=== PATIENT | male | born 1985 | race African-American/Black ===

== ENCOUNTER 2020-01-14 23:23 | Emergency (ER) | payer MEDICAID, OTHER ==
[~2020-01-14] VITALS: Ht 172.7 cm; Wt 81.8 kg
[~2020-01-14 23:23] MED LIST: NO HOME MEDS
[2020-01-14 23:37] VITALS: BP 153/94
[2020-01-14] MEDS ORDERED: ALBU6.7H9 INH (23:46)
[2020-01-14] MEDS ORDERED: PRED20TA PO (23:46)
--- NOTE | 2020-01-14 23:58 | NUR ---
PT HAD COUGHING EPISODE AND THEN EPISODE OF EMESIS (SMALL AMT). PETROS ALVARADO UPDATED AND SAW PATIENT RIGHT AFTER EPISODE. PT HAS A FRIEND WITH HIM IN RAP TENT.
--- NOTE | 2020-01-15 00:02 | NUR ---
I ATTEMPTED TWICE TO SWAB PTS NOSE FOR COVID AND HE WAS UNABLE TO TOLERATE IT AND NOW REFUSES THE TEST. PETROS ALVARADO AWARE.
--- NOTE | 2020-01-15 00:09 | NUR ---
pt requests an inhaler before he leaves, updated that our hospital dose not dispense Rx and he will have to get them filled tomorrow. Pt states he's unable to breath d/t his cough. PETROS Cervantes updated and verbal received for order of earline quinonez.
[2020-01-15] MEDS ORDERED: benzonatate 100mg capsule PO ONE (00:15)
== END 2020-01-15 00:36 | disposition home or self-care (01) ==
LOC: ER 23:24
DX: R05 Cough (principal); R06.02 Shortness of breath; Z20.828 Contact with and (suspected) exposure to other viral communicable diseases; Z72.0 Tobacco use; Z98.890 Other specified postprocedural states; Z59.0 Homelessness; Z88.0 Allergy status to penicillin; Z79.899 Other long term (current) drug therapy
CPT/HCPCS: 99283

== ENCOUNTER 2021-10-16 07:15 | Inpatient (IN) | payer MEDICAID, OTHER ==
[~2021-10-16] VITALS: Ht 170.2 cm; Wt 70.0 kg
[~2021-10-16 07:15] MED LIST changes: +ALBU6.7H9 INH
[2021-10-16] MEDS ORDERED: ringers solution, lacted 1,000 ML IV ONE ×3 (09:00→12:10)
[2021-10-16] MEDS ORDERED: acetaminophen 325mg tablet PO ONE (09:05)
[2021-10-16] MEDS ORDERED: ondansetron/PF 4mg/2ml inj IV ONE (09:05)
[2021-10-16 10:29] LABS: BASOPHILS % (AUTO) 0.2 % (0-1); EOSINOPHILS # (AUTO) 0.1 X10'3 (0-0.9); EOSINOPHILS % (AUTO) 0.6 % (0-6); HEMATOCRIT 48.9 % (42.0-52.0); HEMOGLOBIN 16.3 g/dl (14.0-17.9); LYMPHOCYTES # (AUTO) 1.7 X10'3 (1.1-4.8); LYMPHOCYTES % (AUTO) 10.6 % (21-51); MEAN CORPUSCULAR HEMOGLOBIN 27.7 PG (27.0-31.0); MEAN CORPUSCULAR HGB CONC 33.4 g/dL (33.0-36.5); MEAN CORPUSCULAR VOLUME 82.7 FL (78-98); MEAN PLATELET VOLUME 8.9 FL (7.4-10.4); MONOCYTES # (AUTO) 1.6 X10'3 (0-0.9); MONOCYTES % (AUTO) 9.9 % (2-12); NEUTROPHILS # (AUTO) 12.5 X10'3 (1.8-7.7); NEUTROPHILS % (AUTO) 78.7 % (42-75); PLATELET COUNT 390 X10'3 (140-440); RED BLOOD COUNT 5.91 X10'6 (4.70-6.10); RED CELL DISTRIBUTION WIDTH 15.3 % (11.5-14.5); WHITE BLOOD COUNT 15.9 X10'3 (4.5-11.0)
[2021-10-16 10:45] LABS: ALANINE AMINOTRANSFERASE 26 U/L (12-78); ALKALINE PHOSPHATASE 81 IU/L (46-116); ANION GAP 15 (8-16); ASPARTATE AMINO TRANSFERASE 27 U/L (10-37); BILIRUBIN,TOTAL 0.8 MG/DL (0.1-1.0); BLOOD UREA NITROGEN 38 MG/DL (7-18); BUN/CREATININE RATIO 10.2 (5.4-32.0); CALCIUM 9.5 MG/DL (8.5-10.1); CHLORIDE 95 MMOL/L (99-107); CREATININE 3.74 MG/DL (0.60-1.10); GLUCOSE 83 MG/DL (70-104); MAGNESIUM 2.7 MG/DL (1.5-2.4); POTASSIUM 3.6 MMOL/L (3.5-5.1); SODIUM 136 MMOL/L (135-145); TOTAL CARBON DIOXIDE 26.4 MMOL/L (24-32); TOTAL PROTEIN 10.2 G/DL (6.4-8.2); eGFR 23 ML/MIN
[2021-10-16 11:18] LABS: CREATINE KINASE 929 U/L (39-308)
[2021-10-16 11:34] LABS: CLARITY,URINE CLOUDY (Clear); COLOR,URINE YELLOW (Yellow); GLUCOSE, URINE NEGATIVE (Neg); KETONES,URINE 15 mg/dl (Neg); LEUKOCYTE ESTERASE ,URINE NEGATIVE (Neg); NITRITES, URINE NEGATIVE (Neg); OCCULT BLOOD,URINE SMALL (Neg); PH,URINE 5.5 (4.8-8.0); PROTEIN,URINE 100 mg/dl (Neg); UROBILINOGEN,URINE 0.2 E.U/dL (0.2-1.0)
[2021-10-16 11:48] LABS: SODIUM,URINE RANDOM 41 MEQ/L; URINE AMPHETAMINE SCREEN POSITIVE (Neg); URINE BARBITUATE SCREEN NEGATIVE (Neg); URINE BENZODIAZEPINES SCREEN NEGATIVE (Neg); URINE CANNABINOID SCREEN POSITIVE (Neg); URINE COCAINE SCREEN NEGATIVE (Neg); URINE METHADONE SCREEN NEGATIVE (Neg); URINE PHENCYCLIDINE SCREEN NEGATIVE (Neg)
[2021-10-16 11:50] LABS: UA COLLECTION TYPE CLN CATCH MIDSTREAM
[2021-10-16 11:51] LABS: BACTERIA,URINE 1+ /HPF (Neg); HYALINE CASTS 0-3 /LPF (NEGATIVE); MUCUS STRANDS FEW /LPF (Neg); RBC,URINE 0-2 /HPF (0-2); SQUAMOUS EPITHELIAL CELL,UR FEW /LPF (FEW)
[2021-10-16 11:52] LABS: WBC CLUMPS,URINE FEW /HPF (NEGATIVE)
[2021-10-16] MEDS ORDERED: magnesium hydroxide 30ml (MOM) UD suspension PO PRN (14:40)
[2021-10-16] MEDS ORDERED: magnesium 4gm in 100ml NS 100 ML IV PRN (14:40)
[2021-10-16] MEDS ORDERED: ondansetron/PF 4mg/2ml inj IV PRN (14:40)
[2021-10-16] MEDS ORDERED: magnesium Cl slow-release 64mg tablet PO PRN (14:40)
[2021-10-16] MEDS ORDERED: mag hydrox/Alum hydrox/simeth 30ml oral suspension PO PRN (14:40)
[2021-10-16] MEDS ORDERED: potassium CL 10mEq/100ml bag 100 ML IV PRN (14:40)
[2021-10-16] MEDS ORDERED: POTASSIUM BICARB 20meq eff tab 20 MEQ TABLET.EFF PO PRN ×2 (14:40)
[2021-10-16] MEDS ORDERED: magnesium 2GM in 50ml NS 50 ML IV PRN (14:40)
[2021-10-16] MEDS ORDERED: acetaminophen 325mg tablet PO PRN ×2 (14:40)
[2021-10-16 15:08] LABS: HEMOGLOBIN A1C 5.4 % (4.5-6.2)
[2021-10-16] MEDS: normal saline 1000ml 1,000 ML IV SCH ×2 (15:12→17:28)
[2021-10-16] MEDS: CefTRIAXone/D5W-Rocephin 1gm 50 ML IV SCH (15:12)
--- NOTE | 2021-10-16 16:24 | NUR ---
Report given at this time for room 3012 c
[2021-10-16 16:52] VITALS: BP 117/76
[2021-10-16] MEDS ORDERED: pantoprazole 40MG/NS 100ML BAG 100 ML IV SCH (17:30)
[2021-10-16 18:00] VITALS: BP 117/76
[2021-10-16] MEDS: K and/or MAG REPLACEMENT MC SCH (18:15)
[2021-10-16] MEDS: docusate sod 100mg capsule PO SCH (20:46)
[2021-10-16] MEDS: pantoprazole 40MG/NS 100ML BAG 100 ML IV SCH (20:47)
[2021-10-16] MEDS: heparin, porcine 5000 units/ml vial SQ SCH (20:49)
[2021-10-16 22:00] VITALS: BP 111/60
[2021-10-17 02:52] VITALS: BP 93/59
[2021-10-17 06:00] VITALS: BP 107/49
[2021-10-17 06:30] LABS: BASOPHILS # (AUTO) 0.1 X10'3 (0-0.2); BASOPHILS % (AUTO) 0.8 % (0-1); EOSINOPHILS # (AUTO) 0.2 X10'3 (0-0.9); EOSINOPHILS % (AUTO) 1.9 % (0-6); HEMOGLOBIN 12.8 g/dl (14.0-17.9); LYMPHOCYTES # (AUTO) 1.7 X10'3 (1.1-4.8); LYMPHOCYTES % (AUTO) 18.7 % (21-51); MEAN CORPUSCULAR HEMOGLOBIN 27.9 PG (27.0-31.0); MEAN CORPUSCULAR HGB CONC 33.7 g/dL (33.0-36.5); MEAN CORPUSCULAR VOLUME 82.9 FL (78-98); MEAN PLATELET VOLUME 9.2 FL (7.4-10.4); MONOCYTES # (AUTO) 1.4 X10'3 (0-0.9); MONOCYTES % (AUTO) 15.3 % (2-12); NEUTROPHILS # (AUTO) 5.8 X10'3 (1.8-7.7); NEUTROPHILS % (AUTO) 63.3 % (42-75); PLATELET COUNT 317 X10'3 (140-440); RED BLOOD COUNT 4.58 X10'6 (4.70-6.10); RED CELL DISTRIBUTION WIDTH 14.8 % (11.5-14.5); WHITE BLOOD COUNT 9.2 X10'3 (4.5-11.0)
--- NOTE | 2021-10-17 06:45 | NUR ---
Patient in room PCU 3012C. I have received report from MERA LOZANO and had the opportunity to ask questions and assume patient care.
[2021-10-17 07:05] LABS: ALANINE AMINOTRANSFERASE 23 U/L (12-78); ALBUMIN 3.4 G/DL (3.4-5.0); ALKALINE PHOSPHATASE 65 IU/L (46-116); ANION GAP 11 (8-16); ASPARTATE AMINO TRANSFERASE 21 U/L (10-37); BILIRUBIN,TOTAL 0.6 MG/DL (0.1-1.0); BLOOD UREA NITROGEN 33 MG/DL (7-18); BUN/CREATININE RATIO 18.4 (5.4-32.0); CALCIUM 8.3 MG/DL (8.5-10.1); CHLORIDE 102 MMOL/L (99-107); CHOL/HDL RATIO 3.4 (0.00-4.99); CHOLESTEROL 114 MG/DL (0-200); CREATININE 1.79 MG/DL (0.60-1.10); GLUCOSE 87 MG/DL (70-104); HDL CHOLESTEROL 34 MG/DL (35-60); LDL CHOLESTEROL 60 MG/DL (50-100); MAGNESIUM 2.1 MG/DL (1.5-2.4); PHOSPHORUS 3.6 MG/DL (2.3-4.5); POTASSIUM 3.6 MMOL/L (3.5-5.1); SODIUM 137 MMOL/L (135-145); TOTAL CARBON DIOXIDE 24.2 MMOL/L (24-32); TOTAL PROTEIN 6.9 G/DL (6.4-8.2); TRIGLYCERIDES 86 MG/DL (20-135); eGFR 53 ML/MIN
[2021-10-17] MEDS: heparin, porcine 5000 units/ml vial SQ SCH ×2 (08:00→20:07)
[2021-10-17] MEDS: K and/or MAG REPLACEMENT MC SCH ×2 (08:00→20:00)
[2021-10-17] MEDS: pantoprazole 40MG/NS 100ML BAG 100 ML IV SCH ×2 (10:11→20:05)
[2021-10-17] MEDS: docusate sod 100mg capsule PO SCH ×2 (10:15→20:05)
[2021-10-17] MEDS: normal saline 1000ml 1,000 ML IV SCH ×3 (10:21→22:40)
[2021-10-17] MEDS: CefTRIAXone/D5W-Rocephin 1gm 50 ML IV SCH (10:50)
[2021-10-17 11:00] VITALS: BP 105/52
[2021-10-17 15:00] VITALS: BP 97/51
[2021-10-17 18:00] VITALS: BP 123/62
--- NOTE | 2021-10-17 18:19 | NUR ---
Problems reprioritized. Patient report given, questions answered & plan of care reviewed with MERA JADE. Addendum: 10/17/21 at 1859 by Marsha Smalls RN MERA VASQUEZ RN
[2021-10-17 22:00] VITALS: BP 121/72
[2021-10-18 02:00] VITALS: BP 132/77
[2021-10-18] MEDS: normal saline 1000ml 1,000 ML IV SCH (05:07)
[2021-10-18 06:00] VITALS: BP 124/73
[2021-10-18 06:34] LABS: BASOPHILS # (AUTO) 0.1 X10'3 (0-0.2); BASOPHILS % (AUTO) 0.9 % (0-1); EOSINOPHILS # (AUTO) 0.2 X10'3 (0-0.9); EOSINOPHILS % (AUTO) 1.9 % (0-6); HEMATOCRIT 34.5 % (42.0-52.0); HEMOGLOBIN 11.3 g/dl (14.0-17.9); LYMPHOCYTES # (AUTO) 1.8 X10'3 (1.1-4.8); LYMPHOCYTES % (AUTO) 19.6 % (21-51); MEAN CORPUSCULAR HEMOGLOBIN 27.5 PG (27.0-31.0); MEAN CORPUSCULAR HGB CONC 32.9 g/dL (33.0-36.5); MEAN CORPUSCULAR VOLUME 83.8 FL (78-98); MEAN PLATELET VOLUME 9.1 FL (7.4-10.4); MONOCYTES # (AUTO) 1.1 X10'3 (0-0.9); MONOCYTES % (AUTO) 12.2 % (2-12); NEUTROPHILS # (AUTO) 5.9 X10'3 (1.8-7.7); NEUTROPHILS % (AUTO) 65.4 % (42-75); PLATELET COUNT 259 X10'3 (140-440); RED BLOOD COUNT 4.12 X10'6 (4.70-6.10)
[2021-10-18 07:08] LABS: ALANINE AMINOTRANSFERASE 23 U/L (12-78); ALBUMIN 3.1 G/DL (3.4-5.0); ALKALINE PHOSPHATASE 64 IU/L (46-116); ANION GAP 10 (8-16); ASPARTATE AMINO TRANSFERASE 19 U/L (10-37); BILIRUBIN,TOTAL 0.3 MG/DL (0.1-1.0); BLOOD UREA NITROGEN 24 MG/DL (7-18); BUN/CREATININE RATIO 17.9 (5.4-32.0); CALCIUM 8.3 MG/DL (8.5-10.1); CHLORIDE 108 MMOL/L (99-107); CREATININE 1.34 MG/DL (0.60-1.10); GLUCOSE 121 MG/DL (70-104); MAGNESIUM 1.9 MG/DL (1.5-2.4); PHOSPHORUS 2.4 MG/DL (2.3-4.5); POTASSIUM 3.9 MMOL/L (3.5-5.1); SODIUM 142 MMOL/L (135-145); TOTAL CARBON DIOXIDE 24.5 MMOL/L (24-32); TOTAL PROTEIN 6.3 G/DL (6.4-8.2); eGFR 74 ML/MIN
[2021-10-18] MEDS: heparin, porcine 5000 units/ml vial SQ SCH (08:00)
[2021-10-18] MEDS: K and/or MAG REPLACEMENT MC SCH (08:00)
[2021-10-18] MEDS: docusate sod 100mg capsule PO SCH (08:00)
[2021-10-18] MEDS: CefTRIAXone/D5W-Rocephin 1gm 50 ML IV SCH (08:36)
[2021-10-18] MEDS: pantoprazole 40MG/NS 100ML BAG 100 ML IV SCH (08:36)
[2021-10-18] MEDS ORDERED: CEFD300C3 PO (14:14)
[2021-10-18] MEDS ORDERED: LACT1CAP26 PO (14:14)
[2021-10-18] MEDS ORDERED: pantoprazole 40mg Tablet.DR PO SCH (20:00)
== END 2021-10-18 16:50 | disposition home or self-care (01) | DRG 812 ==
LOC: ER 07:15 → ED HOLD 14:40 → EDBEDREQ 15:39 → PCU 3S 16:45
PROVIDERS: ADMIT Family Medicine; ATTEND Family Medicine
PROC: BW211ZZ Computerized Tomography (CT Scan) of Abdomen and Pelvis using Low Osmolar Contrast (ICD-10-PCS; principal; 2021-10-16)
DX: T43.621A Poisoning by amphetamines, accidental (unintentional), initial encounter (principal); N17.0 Acute kidney failure with tubular necrosis; E86.0 Dehydration; F15.10 Other stimulant abuse, uncomplicated; F12.90 Cannabis use, unspecified, uncomplicated; F17.210 Nicotine dependence, cigarettes, uncomplicated; N39.0 Urinary tract infection, site not specified; Z20.822 Contact with and (suspected) exposure to COVID-19; Z28.310 Unvaccinated for COVID-19; Z59.00 Homelessness unspecified; Z91.19 Patient's noncompliance with other medical treatment and regimen; Z88.0 Allergy status to penicillin; Z71.51 Drug abuse counseling and surveillance of drug abuser; Z71.6 Tobacco abuse counseling
CPT/HCPCS: 36415; 71045; 74177; 80053; 80061; 80305; 81001; 82550; 82570; 82800; 83036; 83735; 84100; 84145; 84300; 84540; 85025; 87081; 87088; 87502; 87503; 87811; 93005; 96361; 96374; 99285; C9113; G0378; J0696; J1644; J2405; J3490; J7030; J7120